=== PATIENT | female | born 1930 | race African-American/Black ===

== ENCOUNTER 2016-12-15 16:50 | Inpatient (IN) | payer MEDICARE, BC ==
[~2016-12-15] VITALS: Ht 160 cm; Wt 58.1 kg
[2016-12-15] MEDS ORDERED: ACETAMINOPHEN 325MG TABLET PO PRN (19:00)
[2016-12-15] MEDS ORDERED: LACTULOSE 20G/30ML UDC PO NR (19:45)
[2016-12-15] MEDS: LEVETIRACETAM 250MG TABLET PO SCH (22:11)
[2016-12-15] MEDS: CLONIDINE 0.1MG TABLET PO SCH (22:12)
[2016-12-16] MEDS: CLONIDINE 0.1MG TABLET PO SCH ×2 (06:00→14:00)
[2016-12-16] MEDS: PANTOPRAZOLE 40MG DR TABLET PO SCH (06:01)
[2016-12-16 07:05] LABS: BASOPHILS % 0.9 % (0.0-2.0); EOSINOPHILS % 4.8 % (0.0-5.0); HEMATOCRIT. 34.7 % (36.0-48.0); HEMOGLOBIN. 11.6 g/dL (12.0-16.0); LYMPHOCYTES % 21.1 % (20.0-50.0); MEAN CORPUSCULAR HEMOGLOBIN 31.1 pg (28.0-32.0); MEAN PLATELET VOLUME 8.6 fl (7.4-10.4); MONOCYTES % 8.7 % (2.0-8.0); NEUTROPHILS % 64.5 % (40.0-76.0); PLATELET 234 x1000/uL (130-400); RED BLOOD CELL COUNT 3.73 mill/uL (4.2-5.4); RED CELL DISTRIBUTION WIDTH 14.5 % (11.6-14.6)
[2016-12-16 07:49] LABS: CHLORIDE 100 mEq/L (98-107)
[2016-12-16 08:41] LABS: CARBON DIOXIDE 29 mEq/L (21-32); PREALBUMIN 12.6 mg/dL (20.0-40.0)
[2016-12-16] MEDS: DOCUSATE SODIUM 250MG CAPSULE PO SCH (08:42)
[2016-12-16] MEDS: LEVETIRACETAM 250MG TABLET PO SCH ×2 (08:42→21:11)
[2016-12-16] MEDS: FERROUS SULFATE 325MG TABLET PO SCH (12:11)
[2016-12-16] MEDS: POLYVINYL ALCOHOL OPHTH DROPS 15ML BOTHEYE SCH ×3 (12:11→23:44)
[2016-12-16] MEDS ORDERED: CLONIDINE 0.1MG TABLET PO PRN (19:45)
[2016-12-17 00:14] LABS: CLARITY URINE CLOUDY (CLEAR); COLOR URINE YELLOW (YELLOW); KETONES URINE NEGATIVE (NEGATIVE); LEUKOCYTE ESTERASE URINE 3+ (NEGATIVE); NITRITE URINE NEGATIVE (NEGATIVE); OCCULT BLOOD URINE TRACE (NEGATIVE); PH URINE 5.5 (4.5-8.0); PROTEIN URINE NEGATIVE (NEGATIVE); SPECIFIC GRAVITY URINE 1.011 (1.005-1.030); UROBILINOGEN URINE 0.2 E.U./dL (0.2-1.0)
[2016-12-17] MEDS: PANTOPRAZOLE 40MG DR TABLET PO SCH (06:17)
[2016-12-17] MEDS: POLYVINYL ALCOHOL OPHTH DROPS 15ML BOTHEYE SCH ×4 (06:18→23:40)
[2016-12-17 08:07] LABS: FOLIC ACID (FOLATE) SERUM 6.8 ng/mL (>5.38)
[2016-12-17 08:11] LABS: PHOSPHORUS 3.5 mg/dL (2.5-4.9)
[2016-12-17] MEDS: DOCUSATE SODIUM 250MG CAPSULE PO SCH (09:13)
[2016-12-17] MEDS: FERROUS SULFATE 325MG TABLET PO SCH (09:13)
[2016-12-17] MEDS: LEVETIRACETAM 250MG TABLET PO SCH ×2 (09:13→20:56)
[2016-12-17] MEDS ORDERED: FERROUS SULFATE 300MG/5ML UDC PO SCH (09:45)
[2016-12-17] MEDS: CYANOCOBALAMIN 1000MCG/ML VIAL IM SCH (11:14)
[2016-12-18] MEDS: POLYVINYL ALCOHOL OPHTH DROPS 15ML BOTHEYE SCH (06:00)
[2016-12-18] MEDS: FERROUS SULFATE 300MG/5ML UDC PO SCH (08:44)
[2016-12-18] MEDS: CYANOCOBALAMIN 1000MCG/ML VIAL IM SCH (08:44)
[2016-12-18] MEDS: LEVETIRACETAM 250MG TABLET PO SCH ×2 (08:44→22:09)
[2016-12-18] MEDS: DOCUSATE SODIUM 250MG CAPSULE PO SCH (08:45)
[2016-12-18] MEDS: ACETAMINOPHEN 500MG TABLET PO PRN (22:08)
[2016-12-19] MEDS: POLYVINYL ALCOHOL OPHTH DROPS 15ML BOTHEYE SCH ×5 (05:35→17:22)
[2016-12-19] MEDS: FERROUS SULFATE 300MG/5ML UDC PO SCH (08:39)
[2016-12-19] MEDS: LEVETIRACETAM 250MG TABLET PO SCH ×2 (08:39→21:40)
[2016-12-19] MEDS: DOCUSATE SODIUM 250MG CAPSULE PO SCH (08:39)
[2016-12-19] MEDS: CYANOCOBALAMIN 1000MCG/ML VIAL IM SCH (08:39)
[2016-12-19 09:55] LABS: CLARITY URINE CLEAR (CLEAR); COLOR URINE YELLOW (YELLOW); KETONES URINE NEGATIVE (NEGATIVE); LEUKOCYTE ESTERASE URINE 3+ (NEGATIVE); NITRITE URINE NEGATIVE (NEGATIVE); OCCULT BLOOD URINE TRACE (NEGATIVE); PROTEIN URINE NEGATIVE (NEGATIVE); SPECIFIC GRAVITY URINE 1.012 (1.005-1.030); UROBILINOGEN URINE 0.2 E.U./dL (0.2-1.0)
[2016-12-20] MEDS: POLYVINYL ALCOHOL OPHTH DROPS 15ML BOTHEYE SCH ×4 (06:33→17:00)
[2016-12-20 06:52] LABS: EOSINOPHILS % 7.1 % (0.0-5.0); HEMATOCRIT. 32.7 % (36.0-48.0); HEMOGLOBIN. 11.1 g/dL (12.0-16.0); LYMPHOCYTES % 33.7 % (20.0-50.0); MEAN CORPUSCULAR HEMOGLOBIN 31.3 pg (28.0-32.0); MEAN CORPUSCULAR VOLUME 92.4 fL (81.0-99.0); MEAN PLATELET VOLUME 8.8 fl (7.4-10.4); NEUTROPHILS % 47.2 % (40.0-76.0); PLATELET 249 x1000/uL (130-400); RED BLOOD CELL COUNT 3.54 mill/uL (4.2-5.4); RED CELL DISTRIBUTION WIDTH 14.6 % (11.6-14.6)
[2016-12-20 07:30] LABS: CARBON DIOXIDE 31 mEq/L (21-32); CHLORIDE 102 mEq/L (98-107)
[2016-12-20] MEDS: FERROUS SULFATE 300MG/5ML UDC PO SCH (09:28)
[2016-12-20] MEDS: DOCUSATE SODIUM 250MG CAPSULE PO SCH (09:29)
[2016-12-20] MEDS: LEVETIRACETAM 250MG TABLET PO SCH ×2 (09:29→21:58)
[2016-12-20] MEDS: CYANOCOBALAMIN 1000MCG/ML VIAL IM SCH (09:30)
[2016-12-21] MEDS: POLYVINYL ALCOHOL OPHTH DROPS 15ML BOTHEYE SCH ×4 (01:15→17:24)
[2016-12-21] MEDS: CYANOCOBALAMIN 1000MCG/ML VIAL IM SCH (08:48)
[2016-12-21] MEDS: FERROUS SULFATE 300MG/5ML UDC PO SCH (08:49)
[2016-12-21] MEDS: LEVETIRACETAM 250MG TABLET PO SCH ×2 (08:49→21:54)
[2016-12-21] MEDS: DOCUSATE SODIUM 250MG CAPSULE PO SCH (08:50)
[2016-12-21 13:12] LABS: 25-HYDROXY VITAMIN D3 33 ng/mL (.)
[2016-12-22] MEDS: POLYVINYL ALCOHOL OPHTH DROPS 15ML BOTHEYE SCH ×4 (07:00→18:21)
[2016-12-22] MEDS: ACETAMINOPHEN 500MG TABLET PO PRN (07:01)
[2016-12-22] MEDS: CYANOCOBALAMIN 1000MCG/ML VIAL IM SCH (09:38)
[2016-12-22] MEDS: DOCUSATE SODIUM 250MG CAPSULE PO SCH (09:38)
[2016-12-22] MEDS: LEVETIRACETAM 250MG TABLET PO SCH ×2 (09:38→22:42)
[2016-12-22] MEDS: FERROUS SULFATE 300MG/5ML UDC PO SCH (09:38)
[2016-12-22] MEDS: ZINC SULFATE 220 MG ( 50 ) CAPSULE PO SCH (09:38)
[2016-12-23] MEDS: POLYVINYL ALCOHOL OPHTH DROPS 15ML BOTHEYE SCH ×4 (05:51→18:39)
[2016-12-23 07:41] LABS: BASOPHILS % 1.3 % (0.0-2.0); EOSINOPHILS % 8.1 % (0.0-5.0); HEMOGLOBIN. 11.8 g/dL (12.0-16.0); LYMPHOCYTES % 36.8 % (20.0-50.0); MEAN CORPUSCULAR HEMOGLOBIN 31.5 pg (28.0-32.0); MEAN CORPUSCULAR VOLUME 93.1 fL (81.0-99.0); MEAN PLATELET VOLUME 9.1 fl (7.4-10.4); MONOCYTES % 9.5 % (2.0-8.0); NEUTROPHILS % 44.3 % (40.0-76.0); PLATELET 241 x1000/uL (130-400); RED BLOOD CELL COUNT 3.76 mill/uL (4.2-5.4); RED CELL DISTRIBUTION WIDTH 14.6 % (11.6-14.6)
[2016-12-23 07:57] LABS: CARBON DIOXIDE 32 mEq/L (21-32); CHLORIDE 103 mEq/L (98-107)
[2016-12-23] MEDS: DOCUSATE SODIUM 250MG CAPSULE PO SCH (08:31)
[2016-12-23] MEDS: FERROUS SULFATE 300MG/5ML UDC PO SCH (08:31)
[2016-12-23] MEDS: ZINC SULFATE 220 MG ( 50 ) CAPSULE PO SCH (08:32)
[2016-12-23] MEDS: CYANOCOBALAMIN 1000MCG/ML VIAL IM SCH (08:32)
[2016-12-23] MEDS: LEVETIRACETAM 250MG TABLET PO SCH ×2 (08:32→21:20)
[2016-12-24] MEDS: POLYVINYL ALCOHOL OPHTH DROPS 15ML BOTHEYE SCH ×4 (00:07→18:37)
[2016-12-24] MEDS ORDERED: DOCUSATE SODIUM SUGAR FREE 100MG/10ML UDC PO SCH (09:00)
[2016-12-24] MEDS: FERROUS SULFATE 300MG/5ML UDC PO SCH (09:58)
[2016-12-24] MEDS: LEVETIRACETAM 250MG TABLET PO SCH ×2 (09:58→21:28)
[2016-12-24] MEDS: ZINC SULFATE 220 MG ( 50 ) CAPSULE PO SCH (09:58)
[2016-12-24] MEDS ORDERED: DOCUSATE SODIUM 250MG CAPSULE PO SCH ×2 (11:00→18:00)
[2016-12-25] MEDS: POLYVINYL ALCOHOL OPHTH DROPS 15ML BOTHEYE SCH ×4 (01:14→17:24)
[2016-12-25 07:04] LABS: BASOPHILS % 2.5 % (0.0-2.0); EOSINOPHILS % 6.2 % (0.0-5.0); HEMATOCRIT. 34.5 % (36.0-48.0); HEMOGLOBIN. 11.5 g/dL (12.0-16.0); LYMPHOCYTES % 28.5 % (20.0-50.0); MEAN CORPUSCULAR HEMOGLOBIN 30.9 pg (28.0-32.0); MEAN CORPUSCULAR VOLUME 92.5 fL (81.0-99.0); MEAN PLATELET VOLUME 9.4 fl (7.4-10.4); MONOCYTES % 7.9 % (2.0-8.0); NEUTROPHILS % 54.9 % (40.0-76.0); PLATELET 304 x1000/uL (130-400); RED BLOOD CELL COUNT 3.74 mill/uL (4.2-5.4); RED CELL DISTRIBUTION WIDTH 14.6 % (11.6-14.6)
[2016-12-25 07:13] LABS: CARBON DIOXIDE 34 mEq/L (21-32); CHLORIDE 102 mEq/L (98-107)
[2016-12-25] MEDS: LEVETIRACETAM 250MG TABLET PO SCH ×2 (10:05→22:10)
[2016-12-25] MEDS: FERROUS SULFATE 300MG/5ML UDC PO SCH (10:05)
[2016-12-25] MEDS: ZINC SULFATE 220 MG ( 50 ) CAPSULE PO SCH (10:05)
[2016-12-25] MEDS: DOCUSATE SODIUM 250MG CAPSULE PO SCH (10:05)
[2016-12-25] MEDS ORDERED: POLYVINYL ALCOHOL OPHTH DROPS 15ML BOTHEYE SCH (18:00)
[2016-12-26] MEDS: POLYVINYL ALCOHOL OPHTH DROPS 15ML BOTHEYE SCH ×6 (00:07→23:30)
[2016-12-26] MEDS: ZINC SULFATE 220 MG ( 50 ) CAPSULE PO SCH (08:46)
[2016-12-26] MEDS: FERROUS SULFATE 300MG/5ML UDC PO SCH (08:46)
[2016-12-26] MEDS: LEVETIRACETAM 250MG TABLET PO SCH ×2 (08:46→20:55)
[2016-12-26] MEDS: DOCUSATE SODIUM 250MG CAPSULE PO SCH (08:46)
[2016-12-26] MEDS: DOCUSATE SODIUM 100MG CAPSULE PO SCH (17:51)
[2016-12-26] MEDS: LACTULOSE 20G/30ML UDC PO SCH ×2 (17:51→20:55)
[2016-12-26] MEDS: ACYCLOVIR 400 MG TABLET PO SCH (20:55)
[2016-12-27] MEDS: POLYVINYL ALCOHOL OPHTH DROPS 15ML BOTHEYE SCH ×4 (05:42→23:41)
[2016-12-27] MEDS: ACYCLOVIR 400 MG TABLET PO SCH ×3 (08:32→17:06)
[2016-12-27] MEDS: LEVETIRACETAM 250MG TABLET PO SCH ×2 (08:32→20:39)
[2016-12-27] MEDS: DOCUSATE SODIUM 250MG CAPSULE PO SCH (08:32)
[2016-12-27] MEDS: ZINC SULFATE 220 MG ( 50 ) CAPSULE PO SCH (08:32)
[2016-12-27] MEDS: FERROUS SULFATE 300MG/5ML UDC PO SCH (08:32)
[2016-12-27] MEDS: DOCUSATE SODIUM 100MG CAPSULE PO SCH ×2 (08:37→17:06)
[2016-12-27] MEDS ORDERED: MAGNESIUM/ALUMINUM HYDROXIDE/SIMETHICONE 30ML UDC PO PRN (15:30)
[2016-12-28] MEDS: POLYVINYL ALCOHOL OPHTH DROPS 15ML BOTHEYE SCH ×4 (05:11→23:24)
[2016-12-28 06:12] LABS: EOSINOPHILS % 4.7 % (0.0-5.0); HEMATOCRIT. 32.7 % (36.0-48.0); MEAN CORPUSCULAR VOLUME 92.5 fL (81.0-99.0); MONOCYTES % 8.1 % (2.0-8.0); NEUTROPHILS % 57.2 % (40.0-76.0); PLATELET 274 x1000/uL (130-400); RED BLOOD CELL COUNT 3.54 mill/uL (4.2-5.4); RED CELL DISTRIBUTION WIDTH 14.8 % (11.6-14.6)
[2016-12-28 06:42] LABS: CARBON DIOXIDE 30 mEq/L (21-32); CHLORIDE 105 mEq/L (98-107)
[2016-12-28] MEDS: FERROUS SULFATE 300MG/5ML UDC PO SCH (09:40)
[2016-12-28] MEDS: LEVETIRACETAM 250MG TABLET PO SCH ×2 (09:40→20:48)
[2016-12-28] MEDS: DOCUSATE SODIUM 100MG CAPSULE PO SCH ×2 (09:40→17:52)
[2016-12-28] MEDS: ACYCLOVIR 400 MG TABLET PO SCH ×3 (09:40→17:52)
[2016-12-28] MEDS: ZINC SULFATE 220 MG ( 50 ) CAPSULE PO SCH (09:40)
[2016-12-28] MEDS: ASPIRIN 81MG TABLET PO SCH (14:00)
[2016-12-29] MEDS: POLYVINYL ALCOHOL OPHTH DROPS 15ML BOTHEYE SCH ×2 (05:41→12:16)
[2016-12-29] MEDS: LEVETIRACETAM 250MG TABLET PO SCH (08:50)
[2016-12-29] MEDS: FERROUS SULFATE 300MG/5ML UDC PO SCH (08:50)
[2016-12-29] MEDS: ASPIRIN 81MG TABLET PO SCH (08:50)
[2016-12-29] MEDS: DOCUSATE SODIUM 100MG CAPSULE PO SCH (08:50)
[2016-12-29] MEDS: ZINC SULFATE 220 MG ( 50 ) CAPSULE PO SCH (08:50)
[2016-12-29] MEDS: ACYCLOVIR 400 MG TABLET PO SCH ×2 (08:50→12:16)
[2016-12-29 14:40] VITALS: BP 124/58
[2016-12-30] MEDS ORDERED: CYANOCOBALAMIN 1000MCG/ML VIAL IM SCH (09:00)
== END 2016-12-29 15:00 | disposition home or self-care (01) | DRG 64 ==
PROVIDERS: ADMIT Physical Medicine & Rehabilitation Spinal Cord Injury Medicine; ATTEND Internal Medicine
DX: I63.9 Cerebral infarction, unspecified (principal); G93.6 Cerebral edema; E46 Unspecified protein-calorie malnutrition; G81.94 Hemiplegia, unspecified affecting left nondominant side; R47.01 Aphasia; R13.10 Dysphagia, unspecified; M48.02 Spinal stenosis, cervical region; M75.01 Adhesive capsulitis of right shoulder; F01.50 Vascular dementia, unspecified severity, without behavioral disturbance, psychotic disturbance, mood disturbance, and anxiety; F32.9 Major depressive disorder, single episode, unspecified; H16.9 Unspecified keratitis; R26.9 Unspecified abnormalities of gait and mobility; M17.0 Bilateral primary osteoarthritis of knee; M48.06 Spinal stenosis, lumbar region; I10 Essential (primary) hypertension; M51.36 Other intervertebral disc degeneration, lumbar region; D64.9 Anemia, unspecified; R47.1 Dysarthria and anarthria; R26.89 Other abnormalities of gait and mobility; R53.81 Other malaise; M50.30 Other cervical disc degeneration, unspecified cervical region; H26.9 Unspecified cataract; H57.8 Other specified disorders of eye and adnexa; F06.31 Mood disorder due to known physiological condition with depressive features; Z82.49 Family history of ischemic heart disease and other diseases of the circulatory system; Z68.22 Body mass index [BMI] 22.0-22.9, adult; Z79.899 Other long term (current) drug therapy
CPT/HCPCS: 36415; 70450; 80048; 80053; 80061; 81001; 82270; 82306; 82607; 82728; 82746; 83036; 83540; 83550; 83735; 84100; 84134; 84443; 84630; 85025; 87086; 92523; 92610; 93970; 97110; 97112; 97116; 97163; 97167; 97530; 97532; 97535; J3420

== ENCOUNTER 2017-07-03 07:46 | Day surgery (SDC) | payer MEDICARE, BC ==
[~2017-07-03] VITALS: Ht 157.5 cm; Wt 59.0 kg
[2017-07-03] MEDS ORDERED: TROPICAMIDE 1% OPHTH DROPS 15ML LEFTEYE ONE (08:40)
[2017-07-03] MEDS ORDERED: PHENYLEPHRINE HCL 10% OPHTH DROPS 5ML LEFTEYE ONE (08:40)
[2017-07-03] MEDS ORDERED: CYCLOPENTOLATE HCL 1% OPHTH DROPS 2ML LEFTEYE ONE (08:40)
[2017-07-03] MEDS ORDERED: LACTATED RINGERS 1,000 ML IV SCH (09:00)
[2017-07-03] MEDS ORDERED: BALANCED SALT IRRIG SOLN COMB1 500ML OP SCH (09:30)
[2017-07-03] MEDS ORDERED: HYALURONATE SODIUM 14 MG/ML 0.85ML SYRINGE IO ONE ×2 (09:50→14:54)
[2017-07-03] MEDS ORDERED: MIDAZOLAM HCL 2 MG/2 ML VIAL ONE (10:41)
[2017-07-03] MEDS ORDERED: FENTANYL CITRATE/PF 50MCG/ML 2ML VIAL ONE (10:41)
[2017-07-03] MEDS ORDERED: ATOR20TA65 PO (12:39)
[2017-07-03] MEDS ORDERED: LEVO500T89 PO (12:39)
[2017-07-03] MEDS ORDERED: CLAR10 PO (12:39)
[2017-07-03] MEDS ORDERED: ALBU18HF2 IH (12:39)
[2017-07-03] MEDS ORDERED: PREDNISOLONE ACETATE 1% OPHTH DROPS 1ML ONE (13:46)
[2017-07-03] MEDS ORDERED: CIPROFLOXACIN 0.3% OPHTH SOLN 2.5ML ONE (13:46)
[2017-07-03] MEDS ORDERED: LIDOCAINE HCL/PF 2% 20 MG/ML 10ML VIAL ONE (13:46)
[2017-07-03] MEDS ORDERED: TETRACAINE 0.5% OPHTH DROPS 4ML ONE (13:46)
[2017-07-03] MEDS ORDERED: NEO/POLYMYX B SULF/DEXAMETH OPHTH OINT 3.5GM ONE (13:46)
[2017-07-03] MEDS ORDERED: BUPIVACAINE HCL/PF 0.75% (7.5MG/ML) 10ML ONE (13:46)
[2017-07-03] MEDS ORDERED: BALANCED SALT IRRIG SOLN 15ML ONE (13:46)
[2017-07-03] MEDS ORDERED: LIDOCAINE HCL 2%/EPINEPHRINE 1:100,000 20 ML VIAL INFIL ONE (13:46)
== END 2017-07-03 13:15 | disposition home or self-care (01) ==
LOC: OR 07:46
PROVIDERS: ATTEND Ophthalmology
DX: H25.89 Other age-related cataract (principal)
CPT/HCPCS: 66984; J2250; J3010; J3490; J7120; V2632